=== PATIENT | female | born 1955 | race Caucasian/White ===

== ENCOUNTER 2022-05-18 02:05 | Emergency (ER) | payer OTHER ==
[~2022-05-18] VITALS: Ht 162.6 cm; Wt 53.5 kg
[2022-05-18] MEDS ORDERED: GLIPIZIDE XL10 MG PO (02:28)
[2022-05-18] MEDS ORDERED: NORVASC5 MG PO (02:28)
[2022-05-18] MEDS ORDERED: JANUMET 50-1,01 EACH PO (02:29)
[2022-05-18] MEDS ORDERED: PEPCID40 MG PO (05:34)
[2022-05-18] MEDS ORDERED: BENADRYL25 MG PO (05:34)
== END 2022-05-18 05:43 ==
LOC: ER 02:05
DX: T78.3XXA Angioneurotic edema, initial encounter (principal)